=== PATIENT | female | born 1965 | race African-American/Black ===

== ENCOUNTER 2017-05-14 12:19 | Inpatient (IN) | payer OTHER ==
[~2017-05-14] VITALS: Ht 165.1 cm; Wt 91.6 kg
[~2017-05-14 12:19] MED LIST: ALDACTONE25 MG PO; AMBIEN 5 MG TABL5 M1 PO; AMLODIPINE BESY10 MG PO; ASPIR 8181 MG PO; ATIVAN1 MG PO; BAYER CHEWABLE81 MG PO; BENTYL 20 MG TA20 M1 PO; CARAFATE 1 GM TA1 G1 PO; CARBAMAZEPINE200 M2 PO; CARBAMAZEPINE200 M5 PO; CATAPRES0.2 MG PO; CELEBREX 200 M200 M1 PO; CIPRO500 MG PO; CLARITIN10 MG PO; CLONIDINE0.1 PO; CLOTRIMAZOLE-BE15 GM; COLACE100 MG PO; CYMBALTA30 MG PO; CYMBALTA60 MG PO; DEPAKOTE 250MG250 M1 PO; DEPAKOTE ER500 MG PO; DEPAKOTE125 MG PO; DUONEB 2.5-0.5 M3 ML INH; ENOXAPARIN40 MG/0.1 SUBQ; FIORICET 50-301 EACH PO; FLONASE 0.05%50 MCG; FLONASE 0.05%50 MCG NASAL; GABAPENTIN 100100 MG PO; IBUPROFEN 400400 M1 PO; IMITREX 25 MG T25 M1 PO; KEPPRA250 MG PO; LEVAQUIN 500 M500 M2 PO; LEVOTHYROXIN0.025 MG PO; LIDODERM 5%1 PATC1 TRANSDERM; LISINOPRIL20 MG PO; LORATIDINE 10 M10 M1 PO; LOSARTAN POTAS100 MG PO; LOTRISONE CREAM15 GM; MAXALT10 MG PO; MOBIC7.5 MG PO; NEURONTIN300 MG; NICOTINE TRANSD14 M1 TRANSDERM; NICOTINE TRANSD21 M1; NORVASC10 MG PO; NORVASC5 MG PO; OXYBUTYNIN 5 MG5 M2 PO; OXYCODONE HCL 55 MG PO; OXYCODONE-ACET1 EACH PO; PEPCID20 MG PO; PERCOCET 5-3251 EACH PO; PERCOCET PO; POTASSIUM20 PO; PRILOSEC 20 MG20 MG PO; PRILOSEC20 MG PO; QUETIAPINE FUMA50 MG PO; SEROQUEL 100 M100 M1 PO; SEROQUEL 50 MG50 MG PO; SYNTHROID25 MCG PO; TEGRETOL200 MG PO; TOPAMAX 25 MG T25 M1 PO; TOPROL XL25 MG PO; TRAMADOL 50 MG50 MG PO; TUMS PO; TYLENOL325 MG PO; ULTRAM 50MG TAB50 MG PO; VESICARE 5 MG TA5 MG PO; VESICARE10 M1 PO; VOLTAREN GEL 1100 G2 TOP; ZANAFLEX4 MG PO; ZOFRAN ODT4 MG PO
[2017-05-14 12:25] VITALS: BP 172/75
[2017-05-14 12:51] LABS: ABSOLUTE NEUTROPHILS 4.1 thou/uL (1.4-8.2); BASOPHILS 0.9 % (0.0-2.0); EOSINOPHILS 0.9 % (0.0-3.0); HEMATOCRIT 39.7 % (37.0-47.0); HEMOGLOBIN 13.3 gm/dL (12.0-15.0); LYMPHOCYTES 42.2 % (24.0-44.0); MCH 31.4 pg (26.0-34.0); MCHC 33.6 g/dL (28.0-37.0); MCV 93.5 fL (80.0-100.0); MONOCYTES 6.6 % (1.0-8.0); PLATELET COUNT 205 thou/uL (150-400); POLYS 49.4 % (36.0-66.0); RBC 4.24 mil/uL (4.20-5.00); WBC 8.2 thou/uL (4.0-11.0)
[2017-05-14 12:57] LABS: URINE BILIRUBIN NEGATIVE (Negative); URINE BLOOD NEGATIVE (Negative); URINE COLOR YELLOW; URINE GLUCOSE-RANDOM* NEGATIVE (Negative); URINE KETONES NEGATIVE (Negative); URINE LEUKOCYTES-REFLEX NEGATIVE (Negative); URINE PROTEIN (DIPSTICK) NEGATIVE (Negative); URINE SPECIFIC GRAVITY <= 1.005 (1.003-1.035); URINE UROBILINOGEN 0.2 E.U./dl (0.2-1.0)
[2017-05-14 12:57] LABS: MANUAL DIFF NO
[2017-05-14 13:06] LABS: ANION GAP 5 mmol/L (7-16); BUN 19 mg/dL (7-18); CALCIUM 9.2 mg/dL (8.5-10.1); CHLORIDE 108 mmol/L (98-107); CO2 29 mmol/L (21-32); CREATININE 0.8 mg/dL (0.6-1.0); GLUCOSE 78 mg/dL (74-106); POTASSIUM 4.6 mmol/L (3.5-5.1); SODIUM 142 mmol/L (136-145)
[2017-05-14 13:12] LABS: ALBUMIN 3.7 g/dL (3.4-5.0); ALKALINE PHOSPHATASE 75 U/L (46-116); MAGNESIUM 1.7 mg/dL (1.8-2.4); SALICYLATE 5.3 mg/dL (2.8-20.0); SGOT 10 U/L (15-37); SGPT 12 U/L (30-65); TOTAL BILIRUBIN 0.2 mg/dL (<0.1-1.0); TOTAL PROTEIN 7.3 g/dL (6.4-8.2)
[2017-05-14 13:13] LABS: ACETAMINOPHEN < 2 ug/mL (10-30)
[2017-05-14 13:15] LABS: AMP/METHAMP Negative (Negative); BARBITURATES Negative (Negative); BENZODIAZEPINES POSITIVE (Negative); COCAINE Negative (Negative); METHADONE Negative (Negative); OPIATES Negative (Negative); PCP Negative (Negative); THC POSITIVE (Negative)
[2017-05-14] MEDS ORDERED: DEPAKOTE ER500 MG PO (13:28)
[2017-05-14] MEDS ORDERED: MOBIC15 MG PO (13:28)
[2017-05-14] MEDS ORDERED: CARBAMAZEPINE200 M2 PO (13:29)
[2017-05-14] MEDS ORDERED: LEVOTHYROXINE0.2 M1 PO (13:29)
[2017-05-14] MEDS ORDERED: VESICARE10 M1 PO (13:30)
[2017-05-14] MEDS ORDERED: NORVASC5 MG PO (13:30)
[2017-05-14] MEDS ORDERED: CLARITIN10 MG PO (13:30)
[2017-05-14] MEDS ORDERED: OMEPRAZOLE 20 M20 M1 PO (13:30)
[2017-05-14] MEDS ORDERED: RIZATRIPTAN10 MG PO (13:31)
[2017-05-14] MEDS ORDERED: BYSTOLIC 5 MG5 M1 PO (13:31)
[2017-05-14] MEDS ORDERED: AMBIEN 5 MG TABL5 M1 PO (13:31)
[2017-05-14] MEDS ORDERED: PREMARIN0.45 MG PO (13:31)
[2017-05-14 15:32] VITALS: BP 169/84
[2017-05-14 16:27] VITALS: BP 173/103
[2017-05-14 17:44] LABS: CHOLESTEROL 262 mg/dL (<200); HDL CHOLESTEROL 41 mg/dL (>40); LDL CHOLESTEROL 176 mg/dL (<100); TC:HDL 6.4 Ratio (Not establshd); TRIGLYCERIDE 226 mg/dL (<150); VLDL 45 mg/dL (<40)
[2017-05-14 19:25] VITALS: BP 179/94
[2017-05-14 19:39] LABS: TSH 2.622 uIU/mL (0.358-3.740)
[2017-05-14 23:37] VITALS: BP 189/95
[2017-05-15 04:54] VITALS: BP 149/92
[2017-05-15 07:50] VITALS: BP 168/92
[2017-05-15 14:14] VITALS: BP 187/113
[2017-05-15 17:10] VITALS: BP 196/108
[2017-05-15 18:20] VITALS: BP 186/105
[2017-05-15 20:26] VITALS: BP 158/79
[2017-05-16] VITALS (7 sets, daily range): BP systolic 150–170; BP diastolic 77–107
[2017-05-16] MEDS ORDERED: KEPPRA 500 MG500 M1 PO (11:43)
== END 2017-05-16 14:59 | disposition home health service (06) | DRG 100 ==
LOC: ER 12:19 → 4W 14:33 → EROBS 14:33 → 4W 15:55
PROVIDERS: Emergency Medicine; Psychiatry & Neurology Neurology
DX: G40.509 Epileptic seizures related to external causes, not intractable, without status epilepticus (principal); G82.50 Quadriplegia, unspecified; G82.20 Paraplegia, unspecified; G40.909 Epilepsy, unspecified, not intractable, without status epilepticus; E78.5 Hyperlipidemia, unspecified; F17.210 Nicotine dependence, cigarettes, uncomplicated; E83.42 Hypomagnesemia; G62.9 Polyneuropathy, unspecified; I10 Essential (primary) hypertension; Z86.73 Personal history of transient ischemic attack (TIA), and cerebral infarction without residual deficits; Z88.0 Allergy status to penicillin; Z88.1 Allergy status to other antibiotic agents; Z88.6 Allergy status to analgesic agent; Z90.710 Acquired absence of both cervix and uterus; Z88.8 Allergy status to other drugs, medicaments and biological substances; Z91.041 Radiographic dye allergy status; Z71.6 Tobacco abuse counseling; Z93.1 Gastrostomy status
CPT/HCPCS: 10045

== ENCOUNTER 2017-05-20 12:37 | Emergency (ER) | payer OTHER ==
[~2017-05-20] VITALS: Ht 165.1 cm; Wt 88.0 kg
--- NOTE | ~2017-05-20 | EKG ---
[place] [address] [employer] [facility] [place] [address] ELECTROCARDIOGRAM REPORT Name: MUNA FAJARDO [facility] [id number] Admission: 05/20/17 Attend Phys: Discharge: 05/20/17 Date of : 69 Report #: [id number] THIS REPORT FOR: //name// [facility] ED Test Date: 2017-05-20 Test Time: 13:18:03 Pat Name: MUNA FAJARDO Department: Room: Gender: F Scientific Writer: : 1965 Requested By: Alex Boyer Order Number: [id number] MD: Wilfredo Laguerre Measurements Intervals [place] Rate: 61 P: 41 RI: 160 QRS: 14 QRSD: 112 T: 1 QT: 422 QTc: 425 Interpretive Statements Sinus rhythm Borderline T abnormalities Compared to ECG 08/01/2016 15:44:18 T-wave abnormality now present Electronically Signed On 05-20-2017 18:15:06 CDT by Wilfredo Laguerre [email or web address] <ELECTRONICALLY SIGNED> By: Wilfredo Laguerre MD, [facility] 05/20/17 1815 1318 1318 Wilfredo Laguerre MD, FACC /EPI
[~2017-05-20 12:37] MED LIST changes: +BYSTOLIC 5 MG5 M1 PO; +KEPPRA 500 MG500 M1 PO; +LEVOTHYROXINE0.2 M1 PO; +MOBIC15 MG PO; +OMEPRAZOLE 20 M20 M1 PO; +PREMARIN0.45 MG PO; +RIZATRIPTAN10 MG PO
[2017-05-20 13:31] LABS: ABSOLUTE NEUTROPHILS 3.7 thou/uL (1.4-8.2); EOSINOPHILS 0.9 % (0.0-3.0); HEMATOCRIT 36.7 % (37.0-47.0); HEMOGLOBIN 12.4 gm/dL (12.0-15.0); LYMPHOCYTES 45.9 % (24.0-44.0); MANUAL DIFF NO; MCH 31.6 pg (26.0-34.0); MCHC 33.8 g/dL (28.0-37.0); MCV 93.5 fL (80.0-100.0); MONOCYTES 6.8 % (1.0-8.0); PLATELET COUNT 199 thou/uL (150-400); POLYS 45.4 % (36.0-66.0); RBC 3.93 mil/uL (4.20-5.00); RDW 13.9 % (10.5-14.5); WBC 8.2 thou/uL (4.0-11.0)
[2017-05-20 13:42] LABS: CALCIUM 8.8 mg/dL (8.5-10.1); CREATININE 0.8 mg/dL (0.6-1.0)
[2017-05-20 13:44] LABS: POTASSIUM 5.2 mmol/L (3.5-5.1)
[2017-05-20 13:46] LABS: ALBUMIN 3.4 g/dL (3.4-5.0); TOTAL BILIRUBIN 0.3 mg/dL (<0.1-1.0); TOTAL PROTEIN 6.7 g/dL (6.4-8.2)
[2017-05-20 14:19] LABS: URINE BILIRUBIN NEGATIVE (Negative); URINE BLOOD TRACE (Negative); URINE COLOR YELLOW; URINE GLUCOSE-RANDOM* NEGATIVE (Negative); URINE KETONES NEGATIVE (Negative); URINE LEUKOCYTES-REFLEX 1+ (Negative); URINE PROTEIN (DIPSTICK) NEGATIVE (Negative); URINE UROBILINOGEN 0.2 E.U./dl (0.2-1.0)
[2017-05-20 14:31] LABS: AMP/METHAMP Negative (Negative); BARBITURATES Negative (Negative); BENZODIAZEPINES POSITIVE (Negative); CASTS None Seen /LPF (None Seen); COCAINE Negative (Negative); CRYSTALS None Seen /LPF (None Seen); METHADONE Negative (Negative); OPIATES Negative (Negative); PCP Negative (Negative); SQUAMOUS 0-3 Few /LPF (0-3); THC POSITIVE (Negative); URINE RBC 0-2 Rare /HPF (0-2); URINE WBC-REFLEX 6-15 Few /HPF (0-5)
[2017-05-20] MEDS ORDERED: MACROBID 100 M100 M1 PO (14:43)
== END 2017-05-20 15:55 | disposition home or self-care (01) ==
LOC: ER 12:37
PROVIDERS: Physician Assistant
DX: R56.9 Unspecified convulsions (principal); E87.6 Hypokalemia; N39.0 Urinary tract infection, site not specified; F12.10 Cannabis abuse, uncomplicated; I10 Essential (primary) hypertension; Z90.710 Acquired absence of both cervix and uterus; Z86.73 Personal history of transient ischemic attack (TIA), and cerebral infarction without residual deficits; Z90.49 Acquired absence of other specified parts of digestive tract; Z88.1 Allergy status to other antibiotic agents; Z88.5 Allergy status to narcotic agent; Z91.041 Radiographic dye allergy status; Z88.0 Allergy status to penicillin; Z87.891 Personal history of nicotine dependence

== ENCOUNTER 2018-01-12 23:23 | Inpatient (IN) | payer OTHER ==
[~2018-01-12] VITALS: Ht 165.1 cm; Wt 94.8 kg
--- NOTE | ~2018-01-12 | HC ---
[facility] [place] [address] CONSULTATION Name: MUNA FAJARDO Room #: 203-P [facility] IN M.R.#: [id number] Admission: 01/13/18 Attend Phys: Lon Nieves MD Discharge: 01/16/18 Date of : 69 Report #: [id number] THIS REPORT FOR: //name// CC: Lon Marcum DATE OF SERVICE: 01/13/2018 HISTORY OF PRESENT ILLNESS: This is a 52-year-old female patient who is unable to provide any reliable history. I talked to the Emergency Room physician and reviewed the patient's records. This patient was admitted with breakthrough seizures. From the history and the records, it indicates that this patient had seizures in the past. She was seen by Dr. Garrett and Dr. Be in the past. They had recommended that she goes to [facility]. She went to [facility] and they changed her medication to Lamictal. She is not feeling well after Lamictal and did not go back to [facility]. In fact, Dr. Be has told her that if she has any more seizure, she should go to Emergency Room at [facility], so she can be seen there. I discussed with her that she needs to go back to [facility] and the reason for that is that we do not have resources to handle and she needs an epileptologist to follow her up, especially if she needs to be evaluated for surgery and because her seizures are uncontrolled. She indicates that she was put on Keppra and she does not have any more seizure. REVIEW OF SYSTEMS: Indicate it is a complicated review of systems. 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 She has a lot of metal in her neck. She does not know whether she can have an MRI or whether she had any MRI since the metal was put in. Records indicate that she did have an MRI here in 2017, which indicate some encephalomalacia, but nothing drastic. At one time, she used to be on Depakote. Presently, she looks like she is on Lamictal and she was started on Keppra when she was in Emergency Room. I am not certain how much dose of Lamictal she is on. She had hysterectomy in the past as per records. She had head injuries in the past. By record, she has coded in the past. So, the history is complex. From review of system, this was the relevant 14-point review of system. PAST MEDICAL HISTORY: Positive for seizure, for which she has been recommended epileptologist. I did carry out 14-point review of system and this was the relevant 14-point review of system. FAMILY HISTORY: Positive for epilepsy. SOCIAL HISTORY: She does not abuse alcohol. [facility] [address] [place] [address] CONSULTATION Name: MUNA FAJARDO Room #: 203-P DIS IN M.R.#: [id number] Admission: 01/13/18 Attend Phys: Lon Nieves MD Discharge: 01/16/18 Date of : 69 Report #: [id number] PHYSICAL EXAMINATION: Indicate she is alert. She is responsive. She can follow simple commands. Her speech, concentration, fund of knowledge and memory is at her baseline. Cranial nerve examination 2-12 is unremarkable. Neuromuscular examinations appear unremarkable. She has no meningeal sign, but she has problem in the neck. There is no carotid bruit in this patient. She has no edema, cyanosis or jaundice. Cardiac examination is unremarkable. Respiratory exam is unremarkable. Vital signs indicate blood pressure 153/75, pulse is 52, and temperature is 97.8. LABORATORY DATA: Indicate sodium of 146. Magnesium was a little bit low, but triglycerides were . IMPRESSION: The patient presented with a history of seizure. I frankly discussed with the patient that she needs to go to a tertiary care center who has an epileptologist and need to follow up with them. If she needs to be evaluated for surgery or even for her uncontrolled seizures, there is not much we can do here. I agree with prior recommendation of Dr. Be and strongly reinforced that. She said she will not go to [facility], but I strongly urged her to do because that is the place to go and there is limited thing we can do here. RECOMMENDATIONS: In the meantime, we will continue Keppra. I will try to find out what dose of Lamictal she was on at home. We will put her back on that. We will leave her on both medications. We will see what EEG shows. She needs to go back to some tertiary care facilities where epileptologist is available. <ELECTRONICALLY SIGNED> By: Michael Marcum MD 01/17/18 1549 1442 8940 Michael Marcum MD /nt
--- NOTE | ~2018-01-12 | EEG ---
[facility] [place] [address] ELECTROENCEPHALOGRAM Name: MUNA FAJARDO Room #: 203-P [facility] IN M.R.#: [id number] Admission: 01/13/18 Attend Phys: Lon Nieves MD Discharge: 01/16/18 Date of : 69 Report #: [id number] THIS REPORT FOR: //name// CC: Lon GallardoQuinn Marcum DATE OF SERVICE: 01/13/2018 This patient is being evaluated for seizure disorder. EEG was done by placing the electrodes by standard 10-20 system of electrode placement. Both referential and sequential montages were used for recording. Background activity in this patient's EEG is about 11 Hz and 40 microvolt. There is a very well formed background activity. The patient repeatedly goes to sleep and that is associated with K complexes, bilateral slowing and vertex sharp waves. Some frontal sharper activity appeared to be present, but that looks more like eye movement artifact. Photic stimulation was unremarkable. IMPRESSION: This patient does not demonstrate any clear-cut epileptiform activity as has been reported in her prior EEG. Sleep related activity is present and sometime it looks like she may be having sharper activity in the frontal area, but that is difficult to separate from the artifact. Thank you very much for this referral. <ELECTRONICALLY SIGNED> By: Michael Marcum MD 01/17/18 1552 1112 1209 MD em Torrez
--- NOTE | ~2018-01-12 | EEG ---
[facility] [place] [address] ELECTROENCEPHALOGRAM Name: MUNA FAJARDO Room #: 203-P DIS IN M.R.#: [id number] Admission: 01/13/18 Attend Phys: Lon Nieves MD Discharge: 01/16/18 Date of : 69 Report #: [id number] THIS REPORT FOR: //name// CC: Lon GallardoQuinn Marcum DATE OF SERVICE: 01/15/2018 This patient is being evaluated for seizure disorder. EEG was done by placing the electrodes by standard 10-20 system of electrode placement. The recording was done by using referential and sequential montages. Background activity is about 11 Hz and 40 microvolt. This is a very well formed background activity. The patient goes to sleep, is associated with drowsiness, sleep spindle and vertex sharp waves. EEG does demonstrate slowing the time, especially on the left side. Whether it is a psychomotor variant or any true epileptiform activity, I cannot tell for sure, but the finding is somewhat subtle. Photic stimulation is unremarkable. IMPRESSION: This patient's EEG demonstrates some slowing on the left side and what looks like psychomotor variant on the left temporal lobe. However, clinical correlation is recommended and it will be desirable to do a video monitor EEG in this patient to see if there is any epileptic correlation with the EEG at that time. Thank you very much for this referral. <ELECTRONICALLY SIGNED> By: Michael Marcum MD 01/17/18 1552 1134 1143 MD em Torrez
[~2018-01-12 23:23] MED LIST changes: +MACROBID 100 M100 M1 PO
[2018-01-12 23:24] VITALS: BP 213/109
[2018-01-12] MEDS ORDERED: LAMICTAL100 MG PO (23:45)
[2018-01-12] MEDS ORDERED: FLONASE 0.05%50 MCG NASAL (23:45)
[2018-01-12] MEDS ORDERED: VOLTAREN GEL 1100 G2 TOP (23:46)
[2018-01-12] MEDS ORDERED: ZONISAMIDE 100100 M1 PO (23:47)
[2018-01-13 00:11] LABS: ABSOLUTE NEUTROPHILS 6.8 thou/uL (1.4-8.2); BASOPHILS 1.2 % (0.0-2.0); EOSINOPHILS 0.9 % (0.0-3.0); HEMATOCRIT 41.9 % (37.0-47.0); LYMPHOCYTES 40.7 % (24.0-44.0); MCH 31.5 pg (26.0-34.0); MCHC 33.3 g/dL (28.0-37.0); MCV 94.6 fL (80.0-100.0); MONOCYTES 7.4 % (1.0-8.0); PLATELET COUNT 273 thou/uL (150-400); POLYS 49.8 % (36.0-66.0); RBC 4.43 mil/uL (4.20-5.00); RDW 14.1 % (10.5-14.5); WBC 13.6 thou/uL (4.0-11.0)
[2018-01-13 00:17] LABS: CALCIUM 9.6 mg/dL (8.5-10.1); CREATININE 0.9 mg/dL (0.6-1.0); POTASSIUM 4.7 mmol/L (3.5-5.1)
[2018-01-13 00:23] LABS: ALBUMIN 4.3 g/dL (3.4-5.0); TOTAL BILIRUBIN 0.4 mg/dL (<0.1-1.0); TOTAL PROTEIN 7.9 g/dL (6.4-8.2)
[2018-01-13 01:05] LABS: URINE BILIRUBIN NEGATIVE (Negative); URINE BLOOD NEGATIVE (Negative); URINE CLARITY CLEAR; URINE COLOR YELLOW; URINE GLUCOSE-RANDOM* NEGATIVE (Negative); URINE KETONES NEGATIVE (Negative); URINE LEUKOCYTES NEGATIVE (Negative); URINE NITRITE NEGATIVE (Negative); URINE PROTEIN (DIPSTICK) NEGATIVE (Negative); URINE SPECIFIC GRAVITY <= 1.005 (1.005-1.035); URINE UROBILINOGEN 0.2 E.U./dl (0.2-1.0)
[2018-01-13 02:15] VITALS: BP 172/82
[2018-01-13 02:44] VITALS: BP 156/75
[2018-01-13 07:01] LABS: HEMATOCRIT 40.5 % (37.0-47.0); HEMOGLOBIN 13.5 gm/dL (12.0-15.0); MCH 31.3 pg (26.0-34.0); MCHC 33.4 g/dL (28.0-37.0); MCV 93.7 fL (80.0-100.0); RBC 4.32 mil/uL (4.20-5.00); RDW 14.1 % (10.5-14.5); WBC 9.9 thou/uL (4.0-11.0)
[2018-01-13 07:09] LABS: CALCIUM 9.2 mg/dL (8.5-10.1); CREATININE 0.9 mg/dL (0.6-1.0)
[2018-01-13 07:11] LABS: POTASSIUM 3.6 mmol/L (3.5-5.1)
[2018-01-13 08:35] VITALS: BP 160/90
[2018-01-13 12:04] VITALS: BP 153/75
[2018-01-13 16:47] VITALS: BP 160/86
[2018-01-13 19:50] VITALS: BP 154/85
[2018-01-14 04:45] VITALS: BP 161/96
[2018-01-14 09:27] VITALS: BP 177/93
[2018-01-14 12:34] VITALS: BP 157/77
[2018-01-14 16:38] VITALS: BP 187/102
[2018-01-14 20:10] VITALS: BP 173/94
[2018-01-14 23:45] LABS: HEMATOCRIT 40.3 % (37.0-47.0); HEMOGLOBIN 13.4 gm/dL (12.0-15.0); MCH 31.2 pg (26.0-34.0); MCHC 33.3 g/dL (28.0-37.0); MCV 93.7 fL (80.0-100.0); RBC 4.3 mil/uL (4.20-5.00); RDW 14.2 % (10.5-14.5); WBC 9.2 thou/uL (4.0-11.0)
[2018-01-15 00:27] LABS: ALBUMIN 3.7 g/dL (3.4-5.0); CREATININE 0.8 mg/dL (0.6-1.0); MAGNESIUM 1.9 mg/dL (1.8-2.4); POTASSIUM 3.6 mmol/L (3.5-5.1); TOTAL BILIRUBIN 0.5 mg/dL (<0.1-1.0); TOTAL PROTEIN 6.9 g/dL (6.4-8.2)
[2018-01-15 04:50] VITALS: BP 117/63; BP 146/85
[2018-01-15 07:43] VITALS: BP 150/67
[2018-01-15 11:22] VITALS: BP 180/83
[2018-01-15 15:11] VITALS: BP 111/89
[2018-01-15 19:24] VITALS: BP 142/91
[2018-01-16 04:08] VITALS: BP 157/82
[2018-01-16 07:35] VITALS: BP 152/97
[2018-01-16 11:04] VITALS: BP 151/94
[2018-01-16 15:19] VITALS: BP 135/71
[2018-01-16] MEDS ORDERED: CARBAMAZEPINE200 M2 PO ×2 (15:33)
[2018-03-11] MEDS ORDERED: KEFLEX500 M1 PO (00:20)
== END 2018-01-16 18:07 | disposition short-term general hospital (02) | DRG 100 ==
LOC: ER 23:23 → 2N 01-13 01:13 → EROBS 01-13 01:13 → 2N 01-13 02:25
PROVIDERS: Nurse Practitioner; Nurse Practitioner Family; Psychiatry & Neurology Neuromuscular Medicine
DX: G40.509 Epileptic seizures related to external causes, not intractable, without status epilepticus (principal); G82.50 Quadriplegia, unspecified; E78.5 Hyperlipidemia, unspecified; F12.90 Cannabis use, unspecified, uncomplicated; E03.9 Hypothyroidism, unspecified; R10.819 Abdominal tenderness, unspecified site; F17.210 Nicotine dependence, cigarettes, uncomplicated; I10 Essential (primary) hypertension; G62.9 Polyneuropathy, unspecified; Z86.73 Personal history of transient ischemic attack (TIA), and cerebral infarction without residual deficits; Z90.710 Acquired absence of both cervix and uterus; Z90.49 Acquired absence of other specified parts of digestive tract; Z88.0 Allergy status to penicillin; Z88.8 Allergy status to other drugs, medicaments and biological substances; Z88.6 Allergy status to analgesic agent; Z88.1 Allergy status to other antibiotic agents; Z91.041 Radiographic dye allergy status; Z82.0 Family history of epilepsy and other diseases of the nervous system
CPT/HCPCS: 10081

== ENCOUNTER 2018-01-20 15:55 | Emergency (ER) | payer OTHER ==
[~2018-01-20] VITALS: Ht 162.6 cm; Wt 72.6 kg
--- NOTE | ~2018-01-20 | EKG ---
[place] [address] [place] [address] ELECTROCARDIOGRAM REPORT Name: MUNA FAJARDO [facility] [id number] Admission: 01/20/18 Attend Phys: Discharge: Date of : 69 Report #: [id number] THIS REPORT FOR: //name// [facility] ED Test Date: 2018-01-20 Test Time: 17:00:06 Pat Name: MUNA FAJARDO Department: Room: Gender: F Food And Nutrition Professor: ALEXANDER : 1965 Requested By: Jerald Hill Order Number: [id number] MD: iWlfredo Laguerre Measurements Intervals [place] Rate: 52 P: 54 CA: 51 QRS: 20 QRSD: 118 T: -13 QT: 466 QTc: 434 Interpretive Statements Sinus rhythm Nonspecific ST and T wave abnormality Compared to ECG 05/20/2017 13:18:03 No significant change was found Electronically Signed On 01-20-2018 17:09:30 CDT by Wilfredo Laguerre [email or web address] <ELECTRONICALLY SIGNED> By: Wilfredo Laguerre MD, [facility] 01/20/18 1709 170 1700 Wilfredo Laguerre MD, FACC /EPI
[~2018-01-20 15:55] MED LIST changes: +LAMICTAL100 MG PO; +ZONISAMIDE 100100 M1 PO
[2018-01-20 16:58] LABS: ABSOLUTE NEUTROPHILS 5.9 thou/uL (1.4-8.2); EOSINOPHILS 0.4 % (0.0-3.0); HEMATOCRIT 39.3 % (37.0-47.0); HEMOGLOBIN 13.3 gm/dL (12.0-15.0); LYMPHOCYTES 29.5 % (24.0-44.0); MCH 30.9 pg (26.0-34.0); MCHC 33.9 g/dL (28.0-37.0); MCV 91.3 fL (80.0-100.0); MONOCYTES 8.4 % (1.0-8.0); PLATELET COUNT 221 thou/uL (150-400); POLYS 60.7 % (36.0-66.0); RBC 4.31 mil/uL (4.20-5.00); RDW 13.5 % (10.5-14.5); WBC 9.7 thou/uL (4.0-11.0)
[2018-01-20 17:09] LABS: CALCIUM 10.1 mg/dL (8.5-10.1); CREATININE 0.9 mg/dL (0.6-1.0); POTASSIUM 4.5 mmol/L (3.5-5.1)
[2018-01-20 17:14] LABS: ALBUMIN 4.2 g/dL (3.4-5.0); TOTAL BILIRUBIN 0.3 mg/dL (<0.1-1.0); TOTAL PROTEIN 7.6 g/dL (6.4-8.2)
[2018-01-20 18:05] VITALS: BP 174/80
[2018-03-11] MEDS ORDERED: KEFLEX500 M1 PO (00:20)
== END 2018-01-20 18:06 | disposition home or self-care (01) ==
LOC: ER 15:55
PROVIDERS: Emergency Medicine
DX: M24.541 Contracture, right hand (principal); I10 Essential (primary) hypertension; G62.9 Polyneuropathy, unspecified; Z87.891 Personal history of nicotine dependence; Z88.0 Allergy status to penicillin; Z88.1 Allergy status to other antibiotic agents; Z88.5 Allergy status to narcotic agent; Z91.041 Radiographic dye allergy status; Z90.710 Acquired absence of both cervix and uterus; W18.39XA Other fall on same level, initial encounter; Y93.89 Activity, other specified; Y92.89 Other specified places as the place of occurrence of the external cause; Y99.8 Other external cause status

== ENCOUNTER 2018-01-22 14:23 | Emergency (ER) | payer OTHER ==
[~2018-01-22] VITALS: Ht 165.1 cm; Wt 90.7 kg
--- NOTE | ~2018-01-22 | EKG ---
[place] [address] [facility] [place] [address] ELECTROCARDIOGRAM REPORT Name: TANAMUNA Room #: PRE [facility]..#: [id number] Admission: Attend Phys: Discharge: Date of : 69 Report #: [id number] THIS REPORT FOR: //name// [facility] ED Test Date: 2018-01-22 Test Time: 14:36:03 Pat Name: MUNA FAJARDO Department: Room: Gender: F Silvering Applicator: KIKI : 1965 Requested By: Gatito Lopez Order Number: [id number] MD: Measurements Intervals [place] Rate: 72 P: 63 SC: 162 QRS: 39 QRSD: 109 T: 10 QT: 467 QTc: 512 Interpretive Statements Sinus rhythm Probable left atrial enlargement Left ventricular hypertrophy Abnormal T, consider ischemia, anterior leads Prolonged QT interval Compared to ECG 01/20/2018 17:00:06 Left ventricular hypertrophy now present T-wave abnormality now present Possible ischemia now present Prolonged QT interval now present ST (T wave) deviation no longer present [email or web address] By: 1436 1436 Epiphany Epiphany, /EPI
[2018-01-22 15:05] LABS: ABSOLUTE NEUTROPHILS 6.2 thou/uL (1.4-8.2); BASOPHILS 0.6 % (0.0-2.0); EOSINOPHILS 0.2 % (0.0-3.0); HEMATOCRIT 39.9 % (37.0-47.0); HEMOGLOBIN 13.2 gm/dL (12.0-15.0); LYMPHOCYTES 27.9 % (24.0-44.0); MCH 31.2 pg (26.0-34.0); MCHC 33.2 g/dL (28.0-37.0); MCV 93.8 fL (80.0-100.0); PLATELET COUNT 222 thou/uL (150-400); POLYS 63.3 % (36.0-66.0); RBC 4.25 mil/uL (4.20-5.00); WBC 9.7 thou/uL (4.0-11.0)
[2018-01-22 15:12] LABS: ANION GAP 11 mmol/L (7-16); BUN 13 mg/dL (7-18); CALCIUM 10.1 mg/dL (8.5-10.1); CHLORIDE 108 mmol/L (98-107); CO2 24 mmol/L (21-32); CREATININE 0.9 mg/dL (0.6-1.0); GLUCOSE 106 mg/dL (74-106); POTASSIUM 3.8 mmol/L (3.5-5.1); SODIUM 143 mmol/L (136-145)
[2018-01-22 15:20] LABS: TROPONIN-I < 0.04 ng/mL (<0.06)
[2018-01-22] MEDS ORDERED: ONDANSETRON HCL4 M2 PO (16:16)
[2018-01-22] MEDS ORDERED: CARAFATE 1 GM TA1 G1 PO (16:16)
[2018-01-22 16:30] VITALS: BP 172/82
[2018-03-11] MEDS ORDERED: KEFLEX500 M1 PO (00:20)
== END 2018-01-22 16:31 | disposition home or self-care (01) ==
LOC: ER 14:23
PROVIDERS: Nurse Practitioner
DX: R07.89 Other chest pain (principal); R11.0 Nausea; I10 Essential (primary) hypertension; Z90.49 Acquired absence of other specified parts of digestive tract; Z87.891 Personal history of nicotine dependence; Z88.1 Allergy status to other antibiotic agents; Z88.5 Allergy status to narcotic agent

== ENCOUNTER 2018-12-21 10:26 | Emergency (ER) | payer OTHER ==
[~2018-12-21] VITALS: Ht 165.1 cm; Wt 83.9 kg
[~2018-12-21 10:26] MED LIST changes: +KEFLEX500 M1 PO; +ONDANSETRON HCL4 M2 PO
[2018-12-21 11:57] LABS: ABSOLUTE NEUTROPHILS 4.7 thou/uL (1.4-8.2); BASOPHILS 1.3 % (0.0-2.0); EOSINOPHILS 0.7 % (0.0-3.0); HEMATOCRIT 39.5 % (37.0-47.0); HEMOGLOBIN 13.3 gm/dL (12.0-15.0); LYMPHOCYTES 33.8 % (24.0-44.0); MCH 32.3 pg (26.0-34.0); MCHC 33.7 g/dL (28.0-37.0); MONOCYTES 6.8 % (1.0-8.0); POLYS 57.4 % (36.0-66.0); RBC 4.11 mil/uL (4.20-5.00); RDW 14.2 % (10.5-14.5); WBC 8.3 thou/uL (4.0-11.0)
[2018-12-21 11:58] LABS: URINE BILIRUBIN NEGATIVE (Negative); URINE BLOOD NEGATIVE (Negative); URINE CLARITY CLEAR; URINE COLOR YELLOW; URINE GLUCOSE-RANDOM* NEGATIVE (Negative); URINE KETONES NEGATIVE (Negative); URINE LEUKOCYTES-REFLEX NEGATIVE (Negative); URINE NITRITE-REFLEX NEGATIVE (Negative); URINE PROTEIN (DIPSTICK) NEGATIVE (Negative); URINE UROBILINOGEN 0.2 E.U./dl (0.2-1.0)
[2018-12-21 12:03] LABS: ANION GAP 9 mmol/L (7-16); BUN 23 mg/dL (7-18); CALCIUM 8.6 mg/dL (8.5-10.1); CHLORIDE 108 mmol/L (98-107); CO2 24 mmol/L (21-32); CREATININE 0.7 mg/dL (0.6-1.0); GLUCOSE 74 mg/dL (74-106); POTASSIUM 3.7 mmol/L (3.5-5.1); SODIUM 141 mmol/L (136-145)
[2018-12-21 12:12] LABS: ALBUMIN 3.2 g/dL (3.4-5.0); SGOT 8 U/L (15-37); SGPT 11 U/L (30-65); TOTAL BILIRUBIN 0.4 mg/dL (<0.1-1.0); TOTAL PROTEIN 6.3 g/dL (6.4-8.2); TROPONIN-I <0.06 ng/mL (<0.06)
[2018-12-21 12:48] LABS: PLATELET COUNT 158 thou/uL (150-400); PLATELET ESTIMATE NORMAL
--- NOTE | 2018-12-21 12:56 | EKG ---
[place] [address] [place] [address] ELECTROCARDIOGRAM REPORT Name: MUNA FAJARDO [facility] [id number] Admission: 12/21/18 Attend Phys: Discharge: Date of : 69 Report #: [id number] THIS REPORT FOR: //name// [facility] ED Test Date: 2018-12-21 Test Time: 11:03:56 Pat Name: MUNA FAJARDO Department: Room: Gender: F Field Artillery Cannoneer: sonny : 1965 Requested By: Astrid Alcaraz Order Number: [id number] MD: Wilfredo Laguerre Measurements Intervals [place] Rate: 51 P: 41 [place]: 157 QRS: 16 QRSD: 110 T: 58 QT: 453 QTc: 418 Interpretive Statements Sinus bradycardia Nonspecific ST and T wave abnormality Compared to ECG 01/22/2018 14:36:03 Prolonged QT interval no longer present Electronically Signed On 12-21-2018 12:56:16 HEATING MECHANIC by Wilfredo Laguerre [email or web address] <ELECTRONICALLY SIGNED> By: Wilfredo Laguerre MD, [facility] 12/21/18 1256 1103 1103 Wilfredo Laguerre MD, FACC /EPI
[2018-12-21] MEDS ORDERED: MOBIC7.5 MG PO (13:03)
[2018-12-21 13:25] VITALS: BP 156/93
== END 2018-12-21 13:40 | disposition home or self-care (01) ==
LOC: ER 10:26
PROVIDERS: Nurse Practitioner Family
DX: R56.9 Unspecified convulsions (principal); I10 Essential (primary) hypertension; Z90.49 Acquired absence of other specified parts of digestive tract; Z90.710 Acquired absence of both cervix and uterus; Z87.891 Personal history of nicotine dependence; Z88.0 Allergy status to penicillin; Z88.1 Allergy status to other antibiotic agents; Z88.5 Allergy status to narcotic agent; Z88.6 Allergy status to analgesic agent; Z88.8 Allergy status to other drugs, medicaments and biological substances; Z91.041 Radiographic dye allergy status

== ENCOUNTER 2019-01-25 20:39 | Emergency (ER) | payer OTHER ==
[~2019-01-25] VITALS: Ht 160 cm; Wt 81.7 kg
[2019-01-25 21:13] LABS: ABSOLUTE NEUTROPHILS 4.4 thou/uL (1.4-8.2); BASOPHILS 0.6 % (0.0-2.0); EOSINOPHILS 0.6 % (0.0-3.0); HEMATOCRIT 37.4 % (37.0-47.0); HEMOGLOBIN 12.8 gm/dL (12.0-15.0); LYMPHOCYTES 38.3 % (24.0-44.0); MCH 32.3 pg (26.0-34.0); MCHC 34.1 g/dL (28.0-37.0); MCV 94.7 fL (80.0-100.0); MONOCYTES 8.8 % (1.0-8.0); PLATELET COUNT 164 thou/uL (150-400); POLYS 51.7 % (36.0-66.0); RBC 3.95 mil/uL (4.20-5.00); RDW 14.3 % (10.5-14.5); WBC 8.5 thou/uL (4.0-11.0)
[2019-01-25 21:15] LABS: URINE BILIRUBIN NEGATIVE (Negative); URINE BLOOD NEGATIVE (Negative); URINE CLARITY CLEAR; URINE COLOR YELLOW; URINE GLUCOSE-RANDOM* NEGATIVE (Negative); URINE KETONES TRACE (Negative); URINE LEUKOCYTES-REFLEX NEGATIVE (Negative); URINE NITRITE-REFLEX NEGATIVE (Negative); URINE PROTEIN (DIPSTICK) TRACE (Negative); URINE SPECIFIC GRAVITY 1.025 (1.005-1.035)
[2019-01-25 21:22] LABS: POTASSIUM 3.8 mmol/L (3.5-5.1)
[2019-01-25 21:24] LABS: AMP/METHAMP Negative (Negative); BARBITURATES Negative (Negative); BENZODIAZEPINES Negative (Negative); COCAINE Negative (Negative); METHADONE Negative (Negative); OPIATES Negative (Negative); PCP Negative (Negative)
[2019-01-25] MEDS ORDERED: DEPAKOTE ER500 M1 PO (21:53)
[2019-01-25] MEDS ORDERED: DIVALPROEX SOD250 M1 PO (21:54)
[2019-01-25] MEDS ORDERED: MYRBETRIQ25 MG PO (21:55)
[2019-01-25] MEDS ORDERED: KEPPRA 500 MG500 M1 PO (21:55)
[2019-01-25] MEDS ORDERED: AMBIEN 5 MG TABL5 M1 PO (21:56)
[2019-01-26 02:44] VITALS: BP 119/87
--- NOTE | 2019-01-26 09:09 | EKG ---
[place] [address] [facility] [place] [address] ELECTROCARDIOGRAM REPORT Name: MUNA FAJARDO Room #: DEP [facility]#: [id number] ������������������ Admission: 01/25/19 ������������������ Attend Phys: Discharge: 01/26/19 ������������������ Date of : 69 Report #: [id number] ����������������������������������������������������������������� [id number] THIS REPORT FOR: //name// [facility] ED Test Date: 2019-01-25 Test Time: 21:16:14 Pat Name: MUNA FAJARDO Department: Room: Gender: F Dump Motor Operator: JUAN MANUEL : 1965 Requested By: Donna Hargrove Order Number: [id number] MD: Wilfredo Laguerre Measurements Intervals [place] Rate: 64 P: 62 NM: 140 QRS: 24 QRSD: 112 T: -20 QT: 438 QTc: 452 Interpretive Statements Sinus rhythm Abnormal T, consider ischemia, anterior leads Compared to ECG 12/21/2018 11:03:56 No significant change was found Electronically Signed On 01-26-2019 9:09:25 CDT by Wilfredo Laguerre [email or web address] ��������������������������������������������� <ELECTRONICALLY SIGNED> ���������������������������������������� By: Wilfredo Laguerre MD, [facility] ��������������������������������������������� 01/26/19 0909 15 15 Wilfredo Laguerre MD, FAC /EPI
== END 2019-01-26 02:47 | disposition home or self-care (01) ==
LOC: ER 20:39
PROVIDERS: Student in an Organized Health Care Education/Training Program
DX: G40.89 Other seizures (principal); I10 Essential (primary) hypertension; G62.9 Polyneuropathy, unspecified; Z87.891 Personal history of nicotine dependence; Z88.0 Allergy status to penicillin; Z88.1 Allergy status to other antibiotic agents; Z88.5 Allergy status to narcotic agent; Z88.6 Allergy status to analgesic agent; Z91.041 Radiographic dye allergy status; Z88.8 Allergy status to other drugs, medicaments and biological substances; Z90.710 Acquired absence of both cervix and uterus; Z86.73 Personal history of transient ischemic attack (TIA), and cerebral infarction without residual deficits

== ENCOUNTER 2019-03-25 21:32 | Emergency (ER) | payer OTHER ==
[~2019-03-25] VITALS: Ht 165.1 cm; Wt 85.7 kg
[~2019-03-25 21:32] MED LIST changes: +DEPAKOTE ER500 M1 PO; +DIVALPROEX SOD250 M1 PO; +MYRBETRIQ25 MG PO
[2019-03-25 22:49] LABS: ABSOLUTE NEUTROPHILS 3.8 thou/uL (1.4-8.2); BASOPHILS 0.9 % (0.0-2.0); EOSINOPHILS 1.1 % (0.0-3.0); HEMATOCRIT 35.9 % (37.0-47.0); HEMOGLOBIN 12.5 gm/dL (12.0-15.0); LYMPHOCYTES 43.3 % (24.0-44.0); MCHC 34.8 g/dL (28.0-37.0); MCV 94.9 fL (80.0-100.0); MONOCYTES 7.5 % (1.0-8.0); PLATELET COUNT 158 thou/uL (150-400); POLYS 47.2 % (36.0-66.0); RBC 3.79 mil/uL (4.20-5.00); RDW 14.7 % (10.5-14.5); WBC 8.1 thou/uL (4.0-11.0)
[2019-03-25 22:54] LABS: ANION GAP 10 mmol/L (7-16); BUN 23 mg/dL (7-18); CALCIUM 8.8 mg/dL (8.5-10.1); CHLORIDE 107 mmol/L (98-107); CO2 27 mmol/L (21-32); CREATININE 0.9 mg/dL (0.6-1.0); GLUCOSE 96 mg/dL (74-106); POTASSIUM 4.4 mmol/L (3.5-5.1); SODIUM 144 mmol/L (136-145)
[2019-03-25 23:05] LABS: ALBUMIN 3.4 g/dL (3.4-5.0); SGOT 15 U/L (15-37); SGPT 12 U/L (30-65); TOTAL BILIRUBIN 0.3 mg/dL (<0.1-1.0); TOTAL PROTEIN 6.5 g/dL (6.4-8.2); TROPONIN-I <0.06 ng/mL (<0.06)
[2019-03-26] MEDS ORDERED: ZOFRAN ODT4 MG PO (00:49)
[2019-03-26 01:00] VITALS: BP 140/60
--- NOTE | 2019-03-28 22:23 | EKG ---
[address] [address] ELECTROCARDIOGRAM REPORT Name: MUNA FAJARDO Room #: DEP [facility]#: [id number] ������������������ Admission: 03/25/19 ������������������ Attend Phys: Discharge: 03/26/19 ������������������ Date of : 69 Report #: [id number] ����������������������������������������������������������������� [id number] THIS REPORT FOR: //name// [facility] ED Test Date: 2019-03-25 Test Time: 21:44:01 Pat Name: MUNA FAJARDO Department: Room: Gender: F Junior Business Analyst: RAY : 1965 Requested By: Filipe Mcdonough Order Number: [id number] MD: Clarence Sewell Measurements Intervals [place] Rate: 71 P: 54 [place]: 156 QRS: 12 QRSD: 109 T: 19 QT: 412 QTc: 448 Interpretive Statements Sinus rhythm Nonspecific T abnormalities, anterior leads Baseline wander in lead(s) V1 Compared to ECG 01/25/2019 21:16:14 Possible ischemia no longer present T-wave abnormality still present Electronically Signed On 03-28-2019 22:23:08 CDT by Clarence Sewell [email or web address] ��������������������������������������������� <ELECTRONICALLY SIGNED> ���������������������������������������� By: Clarence Sewell MD ��������������������������������������������� 03/28/19 2223 43 43 Clarence Sewell MD /EPI
== END 2019-03-26 01:10 | disposition home or self-care (01) ==
LOC: ER 21:32
PROVIDERS: Physician Assistant
DX: R07.89 Other chest pain (principal); I10 Essential (primary) hypertension; G62.9 Polyneuropathy, unspecified; Z87.891 Personal history of nicotine dependence; Z88.5 Allergy status to narcotic agent; Z88.0 Allergy status to penicillin; Z88.1 Allergy status to other antibiotic agents; Z91.041 Radiographic dye allergy status; Z88.8 Allergy status to other drugs, medicaments and biological substances; Z90.710 Acquired absence of both cervix and uterus

== ENCOUNTER 2019-05-28 10:19 | Emergency (ER) | payer OTHER ==
[~2019-05-28] VITALS: Ht 165.1 cm; Wt 81.7 kg
[2019-05-28 11:21] LABS: ALBUMIN 3.1 g/dL (3.4-5.0); ANION GAP 13 mmol/L (7-16); BUN 27 mg/dL (7-18); CHLORIDE 109 mmol/L (98-107); CO2 22 mmol/L (21-32); CREATININE 0.8 mg/dL (0.6-1.0); GLUCOSE 79 mg/dL (74-106); POTASSIUM 4.1 mmol/L (3.5-5.1); SGOT 13 U/L (15-37); SGPT 11 U/L (30-65); SODIUM 144 mmol/L (136-145); TOTAL BILIRUBIN 0.4 mg/dL (<0.1-1.0); TOTAL PROTEIN 6.1 g/dL (6.4-8.2)
[2019-05-28 11:36] LABS: ABSOLUTE NEUTROPHILS 3.7 thou/uL (1.4-8.2); BASOPHILS 0.7 % (0.0-2.0); EOSINOPHILS 1.1 % (0.0-3.0); HEMATOCRIT 33.3 % (37.0-47.0); HEMOGLOBIN 11.2 gm/dL (12.0-15.0); LYMPHOCYTES 36.6 % (24.0-44.0); MCH 32.3 pg (26.0-34.0); MCHC 33.7 g/dL (28.0-37.0); MONOCYTES 8.1 % (1.0-8.0); PLATELET COUNT 162 thou/uL (150-400); POLYS 53.5 % (36.0-66.0); RBC 3.47 mil/uL (4.20-5.00); RDW 13.8 % (10.5-14.5); WBC 6.8 thou/uL (4.0-11.0)
[2019-05-28] MEDS ORDERED: AMLODIPINE BESY10 MG PO (11:44)
[2019-05-28] MEDS ORDERED: BYSTOLIC 5 MG5 M1 PO (11:46)
[2019-05-28] MEDS ORDERED: SYNTHROID25 MC1 PO (11:48)
[2019-05-28] MEDS ORDERED: KEPPRA1000 MG PO (15:51)
[2019-05-28 16:21] VITALS: BP 168/80
--- NOTE | 2019-05-30 18:13 | EKG ---
[place] [address] [place] [address] ELECTROCARDIOGRAM REPORT Name: MUNA FAJARDO Room #: DEP [facility]#: [id number] ������������������ Admission: 05/28/19 ������������������ Attend Phys: Discharge: 05/28/19 ������������������ Date of : 69 Report #: [id number] ����������������������������������������������������������������� [id number] THIS REPORT FOR: //name// [facility] ED Test Date: 2019-05-28 Test Time: 11:33:38 Pat Name: MUNA FAJARDO Department: Room: Gender: F Application Technician: : 1965 Requested By: Haja Macdonald Order Number: [id number] MD: Wilfredo Laguerre Measurements Intervals [place] Rate: 50 P: 46 SD: 152 QRS: 14 QRSD: 115 T: -29 QT: 468 QTc: 427 Interpretive Statements Sinus bradycardia T wave abnormality, consider ischemia Compared to ECG 03/25/2019 21:44:01 T wave abnormality is more pronounced Electronically Signed On 05-30-2019 18:13:03 CDT by Wilfredo Laguerre [email or web address] ��������������������������������������������� <ELECTRONICALLY SIGNED> ���������������������������������������� By: Wilfredo Laguerre MD, [facility] ��������������������������������������������� 05/30/19 1813 D: 07/1132 113 Wilfredo Laguerre MD, FACC /EPI
== END 2019-05-28 16:21 | disposition home or self-care (01) ==
LOC: ER 10:19
PROVIDERS: Emergency Medicine
DX: R56.9 Unspecified convulsions (principal); I10 Essential (primary) hypertension; Z87.891 Personal history of nicotine dependence; Z88.8 Allergy status to other drugs, medicaments and biological substances; Z88.5 Allergy status to narcotic agent; Z88.1 Allergy status to other antibiotic agents; Z91.041 Radiographic dye allergy status; Z88.0 Allergy status to penicillin; Z90.49 Acquired absence of other specified parts of digestive tract; Z86.73 Personal history of transient ischemic attack (TIA), and cerebral infarction without residual deficits; Z90.710 Acquired absence of both cervix and uterus

== ENCOUNTER 2020-04-09 12:03 | Emergency (ER) | payer OTHER ==
[~2020-04-09] VITALS: Ht 165.1 cm; Wt 81.7 kg
[~2020-04-09 12:03] MED LIST changes: +KEPPRA1000 MG PO; +SYNTHROID25 MC1 PO
[2020-04-09 13:15] LABS: URINE BILIRUBIN NEGATIVE (Negative); URINE BLOOD NEGATIVE (Negative); URINE CLARITY CLEAR; URINE COLOR YELLOW; URINE GLUCOSE-RANDOM* NEGATIVE (Negative); URINE KETONES TRACE (Negative); URINE LEUKOCYTES-REFLEX NEGATIVE (Negative); URINE NITRITE-REFLEX NEGATIVE (Negative); URINE PROTEIN (DIPSTICK) NEGATIVE (Negative); URINE SPECIFIC GRAVITY 1.015 (1.005-1.035)
[2020-04-09 13:41] LABS: ABSOLUTE NEUTROPHILS 4.7 thou/uL (1.4-8.2); BASOPHILS 1.2 % (0.0-2.0); EOSINOPHILS 0.6 % (0.0-3.0); HEMATOCRIT 38.2 % (37.0-47.0); HEMOGLOBIN 12.7 gm/dL (12.0-15.0); LYMPHOCYTES 37.1 % (24.0-44.0); MCH 32.3 pg (26.0-34.0); MCHC 33.2 g/dL (28.0-37.0); MCV 97.2 fL (80.0-100.0); MONOCYTES 7.7 % (1.0-8.0); PLATELET COUNT 200 thou/uL (150-400); POLYS 53.4 % (36.0-66.0); RBC 3.93 mil/uL (4.20-5.00); WBC 8.9 thou/uL (4.0-11.0)
[2020-04-09] MEDS ORDERED: RIZATRIPTAN10 MG PO (13:41)
[2020-04-09 13:51] LABS: CALCIUM 8.8 mg/dL (8.5-10.1); CREATININE 0.8 mg/dL (0.6-1.0); POTASSIUM 3.9 mmol/L (3.5-5.1)
[2020-04-09 13:56] LABS: ALBUMIN 3.8 g/dL (3.4-5.0); TOTAL BILIRUBIN 0.4 mg/dL (0.2-1.0)
[2020-04-09] MEDS ORDERED: LIDOCAINE PAIN1 EACH TRANSDERM (15:06)
[2020-04-09 15:21] VITALS: BP 166/85
== END 2020-04-09 15:22 | disposition home or self-care (01) ==
LOC: ER 12:03
PROVIDERS: Physician Assistant
DX: S30.1XXA Contusion of abdominal wall, initial encounter (principal); S00.83XA Contusion of other part of head, initial encounter; I10 Essential (primary) hypertension; G40.909 Epilepsy, unspecified, not intractable, without status epilepticus; M54.2 Cervicalgia; Z87.891 Personal history of nicotine dependence; Z88.5 Allergy status to narcotic agent; Z91.041 Radiographic dye allergy status; Z88.0 Allergy status to penicillin; Z88.1 Allergy status to other antibiotic agents; Z79.899 Other long term (current) drug therapy; Z86.73 Personal history of transient ischemic attack (TIA), and cerebral infarction without residual deficits; W01.198A Fall on same level from slipping, tripping and stumbling with subsequent striking against other object, initial encounter; Y93.89 Activity, other specified; Y92.89 Other specified places as the place of occurrence of the external cause; Y99.9 Unspecified external cause status

== ENCOUNTER 2020-04-18 13:47 | Emergency (ER) | payer OTHER ==
[~2020-04-18] VITALS: Ht 165.1 cm; Wt 78.9 kg
[~2020-04-18 13:47] MED LIST changes: +LIDOCAINE PAIN1 EACH TRANSDERM
[2020-04-18 14:23] LABS: ABSOLUTE NEUTROPHILS 4.4 thou/uL (1.4-8.2); BASOPHILS 1.3 % (0.0-2.0); EOSINOPHILS 1.1 % (0.0-3.0); HEMATOCRIT 38.3 % (37.0-47.0); HEMOGLOBIN 12.9 gm/dL (12.0-15.0); LYMPHOCYTES 42.1 % (24.0-44.0); MCH 32.8 pg (26.0-34.0); MCHC 33.7 g/dL (28.0-37.0); MCV 97.5 fL (80.0-100.0); MONOCYTES 6.4 % (1.0-8.0); PLATELET COUNT 228 thou/uL (150-400); POLYS 49.1 % (36.0-66.0); RBC 3.93 mil/uL (4.20-5.00); RDW 13.3 % (10.5-14.5)
[2020-04-18 14:34] LABS: CALCIUM 8.8 mg/dL (8.5-10.1); POTASSIUM 3.8 mmol/L (3.5-5.1)
[2020-04-18 14:40] LABS: ALBUMIN 3.6 g/dL (3.4-5.0); TOTAL BILIRUBIN 0.2 mg/dL (0.2-1.0); TOTAL PROTEIN 6.6 g/dL (6.4-8.2)
[2020-04-18] MEDS ORDERED: OMEPRAZOLE 20 M20 M1 PO (15:05)
[2020-04-18] MEDS ORDERED: ATORVASTATIN CA20 MG PO (15:06)
[2020-04-18] MEDS ORDERED: BYSTOLIC10 MG PO (15:06)
[2020-04-18] MEDS ORDERED: DEPAKOTE250 MG PO (15:07)
[2020-04-18] MEDS ORDERED: DEPAKOTE500 MG PO (15:48)
[2020-04-18] MEDS ORDERED: KEPPRA 500 MG500 M1 PO (15:48)
[2020-04-18 16:18] LABS: URINE BILIRUBIN NEGATIVE (Negative); URINE BLOOD NEGATIVE (Negative); URINE CLARITY CLEAR; URINE COLOR YELLOW; URINE GLUCOSE-RANDOM* NEGATIVE (Negative); URINE KETONES NEGATIVE (Negative); URINE LEUKOCYTES-REFLEX NEGATIVE (Negative); URINE NITRITE-REFLEX NEGATIVE (Negative); URINE PROTEIN (DIPSTICK) NEGATIVE (Negative); URINE SPECIFIC GRAVITY <= 1.005 (1.005-1.035); URINE UROBILINOGEN 0.2 E.U./dl (0.2-1.0)
[2020-04-18 16:26] LABS: AMP/METHAMP Negative (Negative); BARBITURATES Negative (Negative); BENZODIAZEPINES Negative (Negative); COCAINE Negative (Negative); METHADONE Negative (Negative); OPIATES Negative (Negative); PCP Negative (Negative)
[2020-04-18 16:32] VITALS: BP 141/68
== END 2020-04-18 16:33 | disposition home or self-care (01) ==
LOC: ER 13:47
PROVIDERS: Physician Assistant
DX: R56.9 Unspecified convulsions (principal); M79.641 Pain in right hand; M79.601 Pain in right arm; I10 Essential (primary) hypertension; G62.9 Polyneuropathy, unspecified; Z90.711 Acquired absence of uterus with remaining cervical stump; Z86.73 Personal history of transient ischemic attack (TIA), and cerebral infarction without residual deficits; Z87.442 Personal history of urinary calculi; Z90.49 Acquired absence of other specified parts of digestive tract; Z79.899 Other long term (current) drug therapy; Z88.8 Allergy status to other drugs, medicaments and biological substances; Z88.5 Allergy status to narcotic agent; Z88.1 Allergy status to other antibiotic agents; Z91.041 Radiographic dye allergy status; Z88.6 Allergy status to analgesic agent; Z88.0 Allergy status to penicillin; Z87.891 Personal history of nicotine dependence

== ENCOUNTER 2020-05-15 11:17 | Emergency (ER) | payer OTHER ==
[~2020-05-15] VITALS: Ht 165.1 cm; Wt 77.1 kg
[~2020-05-15 11:17] MED LIST changes: +ATORVASTATIN CA20 MG PO; +BYSTOLIC10 MG PO; +DEPAKOTE250 MG PO; +DEPAKOTE500 MG PO
[2020-05-15 12:42] VITALS: BP 148/79
[2020-05-15 13:17] LABS: URINE BILIRUBIN NEGATIVE (Negative); URINE BLOOD TRACE (Negative); URINE CLARITY CLEAR; URINE COLOR YELLOW; URINE GLUCOSE-RANDOM* NEGATIVE (Negative); URINE KETONES TRACE (Negative); URINE LEUKOCYTES-REFLEX TRACE (Negative); URINE NITRITE-REFLEX NEGATIVE (Negative); URINE PROTEIN (DIPSTICK) NEGATIVE (Negative)
[2020-05-15 13:35] LABS: HEMATOCRIT 40.9 % (37.0-47.0); HEMOGLOBIN 13.6 gm/dL (12.0-15.0); MCH 31.5 pg (26.0-34.0); MCHC 33.3 g/dL (28.0-37.0); MCV 94.7 fL (80.0-100.0); RBC 4.32 mil/uL (4.20-5.00); RDW 13.9 % (10.5-14.5)
[2020-05-15 13:41] LABS: CALCIUM 9.4 mg/dL (8.5-10.1); MAGNESIUM 1.9 mg/dL (1.8-2.4); POTASSIUM 3.6 mmol/L (3.5-5.1)
[2020-05-15 14:04] LABS: ABSOLUTE NEUTROPHILS 14.3 thou/uL (1.4-8.2); PLATELET COUNT 122 thou/uL (150-400)
== END 2020-05-15 15:57 | disposition home or self-care (01) ==
LOC: ER 11:17
PROVIDERS: Emergency Medicine
DX: G40.909 Epilepsy, unspecified, not intractable, without status epilepticus (principal); M54.2 Cervicalgia; I10 Essential (primary) hypertension; Z90.710 Acquired absence of both cervix and uterus; Z87.891 Personal history of nicotine dependence; Z79.899 Other long term (current) drug therapy; Z88.8 Allergy status to other drugs, medicaments and biological substances; Z88.0 Allergy status to penicillin; Z88.1 Allergy status to other antibiotic agents; Z88.5 Allergy status to narcotic agent; Z91.041 Radiographic dye allergy status